=== PATIENT | male | born 1950 ===

== ENCOUNTER 2016-06-12 10:14 | Emergency (ER) | payer MEDICAID ==
[2016-06-12 10:20] VITALS: O2SAT 98
[2016-06-12] MEDS ORDERED: Sodium Chloride 0.9% 1,000 ML IV ONE (10:44)
[2016-06-12 11:09] LABS: EOS # 0.2 K/uL (0.0-0.7); HEMATOCRIT 41.2 % (35.0-51.0); LYMPH % 24.9 % (20.0-40.0); MEAN CELL VOLUME 85.2 fL (80.0-94.0); MEAN CORPUSCULAR HEMOGLOBIN 27.8 pg (27.0-31.0); MEAN CORPUSCULAR HGB CONC 32.7 g/dL (33.0-37.0); MEAN PLATELET VOLUME 8.2 fL (7.2-11.7); MONO # 0.5 K/uL (0.0-0.8); MONO % 12.3 % (0.0-10.0); NRBC % 0.1 % (0.0-2.0); RED CELL DISTRIBUTION WIDTH 14.3 % (11.5-14.5); WHITE BLOOD COUNT 4.1 K/uL (4.8-10.8)
--- NOTE | 2016-06-12 11:09 | C.PDOC ---
History Of Present Illness The patient, a 66 y/o male, presents to the ED for evaluation of hematuria which began yesterday. Patient states he has a history of chronic back pain and reports that he has been experiencing back pain recently. Patient reports he has experienced similar symptoms in the past but states they resolved on their own without any follow-ups. Patient denies fever, chills, abdominal pain, nausea , and vomiting. Time Seen by Provider: 06/12/16 10:32 Chief Complaint (Nursing): Male Genitourinary History Per: Patient History/Exam Limitations: no limitations Onset/Duration Of Symptoms: Days Current Symptoms Are (Timing): Still Present Quality Of Discomfort: "Pain" (back ) Associated Symptoms: Back Pain, Urinary Symptoms (+hematuria ). denies: Fever, Chills, Nausea, Vomiting Additional History Per: Patient Past Medical History Reviewed: Historical Data, Nursing Documentation, Vital Signs Vital Signs: Last Vital Signs Temp 98.6 F 06/12/16 13:32 Pulse 69 06/12/16 13:32 Resp 18 06/12/16 13:32 BP 127/85 06/12/16 13:32 Pulse Ox 98 06/12/16 13:32 - Medical History PMH: Back Problems Surgical History: No Surg Hx Family History: States: Unknown Family Hx - Social History Hx Alcohol Use: No Hx Substance Use: Yes - Immunization History Hx Tetanus Toxoid Vaccination: No Hx Influenza Vaccination: No Hx Pneumococcal Vaccination: No Review Of Systems Except As Marked, All Systems Reviewed And Found Negative. Constitutional: Negative for: Fever, Chills Gastrointestinal: Negative for: Nausea, Vomiting, Abdominal Pain Genitourinary: Positive for: Hematuria Musculoskeletal: Positive for: Back Pain Physical Exam - Physical Exam Appears: Non-toxic, No Acute Distress Skin: Normal Color, Warm, Dry Head: Atraumatic, Normacephalic Eye(s): bilateral: Normal Inspection, EOMI Oral Mucosa: Moist Neck: Supple Chest: Symmetrical, No Deformity, No Tenderness Cardiovascular: Rhythm Regular, No Murmur Respiratory: Normal Breath Sounds, No Rales, No Rhonchi, No Wheezing Gastrointestinal/Abdominal: Soft, No Tenderness, No Guarding, No Rebound Back: Normal Inspection Extremity: Normal ROM, Capillary Refill (less than 2 seconds) Neurological/Psych: Oriented x3, Normal Speech, Normal Cognition Gait: Steady ED Course And Treatment - Laboratory Results Result Diagrams: 06/12/16 11:00 06/12/16 11:00 Lab Interpretation: Normal O2 Sat by Pulse Oximetry: 98 (on RA) Pulse Ox Interpretation: Normal - CT Scan/US CT - Abd & Pelvis Other Rad Studies (CT/US): Read By Radiologist, Radiology Report Reviewed CT/US Interpretation: FINDINGS: LOWER THORAX: Unremarkable. LIVER: Mild hepatomegaly seen. There is 11 millimeter low-attenuation lesion seen at the peripheral right liver lobe. There are also 2 adjacent subcentimeter low- attenuation lesion at the anterior aspect of the left liver lobe. GALLBLADDER AND BILE DUCTS: The gallbladder is not clearly visualized. PANCREAS: Unremarkable. No gross lesion or ductal dilatation. SPLEEN: Unremarkable. ADRENALS: Battery 9th are not well visualized. However no definite evidence of mass lesion. KIDNEYS AND URETERS: Unremarkable. No hydronephrosis. No solid mass. VASCULATURE: Unremarkable. No aortic aneurysm. BOWEL: Moderate constipation is noted. Dense of small bowel obstruction. APPENDIX: No evidence of appendicitis. PERITONEUM: Unremarkable. No free fluid. No free air. LYMPH NODES: There is slightly high attenuation mass lesion at the left pelvis measures 4.8 x 3.7 centimeter may represent conglomerate lymphadenopathy. The assessment for retroperitoneal lymphadenopathy is limited in this study. BLADDER: Yexr-nx-[id number] urinary bladder wall thickening is seen. REPRODUCTIVE: Moderately enlarged prostate is also noted. BONES: No acute fracture. OTHER FINDINGS: Mild to moderate anasarca. IMPRESSION: Limited study without IV and oral contrast administration. No evidence of nephrolithiasis or hydronephrosis. Suspicious for soft tissue mass lesion at the left pelvis measures 4.8 x 3.7 centimeter may represent conglomerate lymphadenopathy. Moderately to markedly enlarged prostate. Further assessment by enhanced CT or other modality is suggested. Diffuse soft tissue edema. Small low-attenuation lesions in the liver not fully characterized in this noncontrast study. Moderate constipation. Mgzl-[id number]-nktlwiqp urinary bladder wall thickening. Progress Note: labs and CT A/P were ordered and reviewed. Patient received IV Fluids. On re-evaluation abdomen soft non-tender. Patient provided with copies of CT and labs. Advised to follow up at clinic Reassessment Condition: Unchanged Disposition Counseled Patient/Family Regarding: Studies Performed, Diagnosis, Need For Followup - Disposition Referrals: [facility] [Outside] [facility] [Outside] Cecy Gonzalez MD [Staff Provider] - Disposition: HOME/ ROUTINE Disposition Time: 13:10 Condition: STABLE Additional Instructions: Return to ED if any increase symptoms Instructions: Acute Hematuria (ED) Print Language: GUYANESE - POA Present On Arrival: None - Clinical Impression Clinical Impression: Hematuria - PA / CASH REGISTER BALANCER / Resident Statement MD/DO has reviewed & agrees with the documentation as recorded. - Scribe Statement The provider has reviewed the documentation as recorded by the Scribe (Ammy Soto) All medical record entries made by the Scribe were at my direction and personally dictated by me. I have reviewed the chart and agree that the record accurately reflects my personal performance of the history, physical exam, medical decision making, and the department course for this patient. I have also personally directed, reviewed, and agree with the discharge instructions and disposition.
[2016-06-12 11:16] LABS: CHLORIDE 98 mmol/L (98-107); POTASSIUM 4.3 mmol/L (3.6-5.2); SODIUM 136 mmol/L (132-148)
[2016-06-12 11:18] LABS: AST/SGOT 41 U/L (17-59); BILIRUBIN,TOTAL 0.3 mg/dL (0.2-1.3); CARBON DIOXIDE 29 mmol/L (22-30); GFR AFRICAN-AMERICAN > 60
[2016-06-12 11:19] LABS: ALB/GLOB RATIO 1.2 (1.0-2.1); ALKALINE PHOSPHATASE 63 U/L (38-126); ALT/SGPT 18 U/L (21-72); BLOOD UREA NITROGEN 11 mg/dL (9-20); CALCIUM 8.9 mg/dl (8.6-10.4); GLUCOSE,RANDOM 93 mg/dL (75-110)
[2016-06-12 11:32] LABS: URINE BILIRUBIN NEGATIVE (NEGATIVE); URINE BLOOD 2+ (NEGATIVE); URINE COLOR Amber (YELLOW); URINE GLUCOSE (UA) 1+ mg/dL (Normal); URINE KETONE 1+ mg/dL (NEGATIVE); URINE LEUKOCYTE ESTERASE NEG Leu/uL (Negative); URINE PROTEIN 2+ mg/dL (NEGATIVE); URINE UROBILINOGEN NORMAL mg/dL (0.2-1.0)
[2016-06-12 11:41] LABS: WBC URINE 1 /hpf (0-5)
[2016-06-12 11:42] LABS: RBC URINE 39495 /hpf (0-3)
--- NOTE | 2016-06-12 12:16 | CT ---
PROCEDURE: CT Abdomen and Pelvis without intravenous contrast HISTORY: Pain COMPARISON: None. TECHNIQUE: Axial and reformatted coronal and sagittal CT images of the abdomen and pelvis were obtained without IV or oral contrast administration. This CT exam was performed using one or more of the following dose reduction techniques: Automated exposure control, adjustment of the mA and/or kv according to patient size, and/or use of iterative reconstruction technique. . Contrast Dose: 0 Radiation dose: Total exam DLP = 245.12 mGy-cm. FINDINGS: LOWER THORAX: Unremarkable. LIVER: Mild hepatomegaly seen. There is 11 millimeter low-attenuation lesion seen at the peripheral right liver lobe. There are also 2 adjacent subcentimeter low-attenuation lesion at the anterior aspect of the left liver lobe. GALLBLADDER AND BILE DUCTS: The gallbladder is not clearly visualized. PANCREAS: Unremarkable. No gross lesion or ductal dilatation. SPLEEN: Unremarkable. ADRENALS: Battery 9th are not well visualized. However no definite evidence of mass lesion. KIDNEYS AND URETERS: Unremarkable. No hydronephrosis. No solid mass. VASCULATURE: Unremarkable. No aortic aneurysm. BOWEL: Moderate constipation is noted. Dense of small bowel obstruction. APPENDIX: No evidence of appendicitis. PERITONEUM: Unremarkable. No free fluid. No free air. LYMPH NODES: There is slightly high attenuation mass lesion at the left pelvis measures 4.8 x 3.7 centimeter may represent conglomerate lymphadenopathy. The assessment for retroperitoneal lymphadenopathy is limited in this study. BLADDER: Dika-zm-kfvgzshc urinary bladder wall thickening is seen. REPRODUCTIVE: Moderately enlarged prostate is also noted. BONES: No acute fracture. OTHER FINDINGS: Mild to moderate anasarca. IMPRESSION: Limited study without IV and oral contrast administration. No evidence of nephrolithiasis or hydronephrosis. Suspicious for soft tissue mass lesion at the left pelvis measures 4.8 x 3.7 centimeter may represent conglomerate lymphadenopathy. Moderately to markedly enlarged prostate. Further assessment by enhanced CT or other modality is suggested. Diffuse soft tissue edema. Small low-attenuation lesions in the liver not fully characterized in this noncontrast study. Moderate constipation. Lbbr-mt-kyobuvaf urinary bladder wall thickening.
[2016-06-12 13:33] VITALS: BP 127/85; PULSE 69; RESP 18; TEMP 98.6
== END 2016-06-12 13:33 | disposition home or self-care (01) ==
LOC: C.ER 10:14
DX: R31.9 Hematuria, unspecified (principal)
CPT/HCPCS: 74176; 80053; 81001; 85025; 87086; 96360; 99284; J7040

== ENCOUNTER 2017-08-31 12:04 | Emergency (ER) | payer MEDICAID, OTHER ==
[2017-08-31 12:59] LABS: SQUAMOUS EPITHIAL 1 /hpf (0-5); URINE AMORPHOUS SEDIMENT RARE /ul (<OCC); URINE BILIRUBIN NEGATIVE (NEGATIVE); URINE BLOOD NEGATIVE (NEGATIVE); URINE CLARITY Hazy (Clear); URINE COLOR Yellow (YELLOW); URINE GLUCOSE (UA) NORMAL (Normal); URINE LEUKOCYTE ESTERASE NEG Leu/uL (Negative); URINE PROTEIN NEGATIVE (NEGATIVE); URINE UROBILINOGEN NORMAL mg/dL (0.2-1.0)
[2017-08-31] MEDS ORDERED: Sodium Chloride 0.9% 1,000 ML IV ONE (13:00)
--- NOTE | 2017-08-31 13:04 | C.PDOC ---
History Of Present Illness 67 y/o male presents to ED with c/o generalized abdominal discomfort associated with nausea for 3 days. Patient reports taking pepto bismol and Licha seltzer with no relief. Patient admits to x2 episodes of vomiting and states he takes Naprosen daily for Arthritis. Patient denies fever, chills, diarrhea or any other complaints at this time. Time Seen by Provider: 08/31/17 12:56 Chief Complaint (Nursing): Abdominal Pain History Per: Patient History/Exam Limitations: no limitations Onset/Duration Of Symptoms: Days Current Symptoms Are (Timing): Still Present Location Of Pain/Discomfort: Diffuse Past Medical History Reviewed: Historical Data, Nursing Documentation, Vital Signs Vital Signs: Last Vital Signs Temp 97.5 F L 08/31/17 12:14 Pulse 56 L 08/31/17 12:14 Resp 16 08/31/17 12:14 BP 123/75 08/31/17 12:14 Pulse Ox 95 08/31/17 13:07 - Medical History PMH: Back Problems Surgical History: No Surg Hx Family History: States: No Known Family Hx - Social History Hx Alcohol Use: No Hx Substance Use: Yes - Immunization History Hx Tetanus Toxoid Vaccination: No Hx Influenza Vaccination: No Hx Pneumococcal Vaccination: No Review Of Systems Constitutional: Negative for: Fever, Chills Gastrointestinal: Positive for: Nausea, Vomiting, Abdominal Pain. Negative for : Diarrhea Genitourinary: Negative for: Dysuria, Hematuria Musculoskeletal: Negative for: Back Pain Skin: Negative for: Rash Physical Exam - Physical Exam Appears: Non-toxic, No Acute Distress Skin: Warm, Dry, No Rash Head: Atraumatic, Normacephalic Eye(s): bilateral: Normal Inspection Oral Mucosa: Moist Neck: Normal ROM, Supple Cardiovascular: Rhythm Regular Respiratory: Normal Breath Sounds, No Rales, No Rhonchi, No Wheezing Gastrointestinal/Abdominal: Bowel Sounds, Soft, No Tenderness, No Guarding, No Rebound Back: No CVA Tenderness, No Paraspinal Tenderness Neurological/Psych: Oriented x3, Normal Speech ED Course And Treatment - Laboratory Results Result Diagrams: 08/31/17 13:22 08/31/17 13:22 Lab Interpretation: No Acute Changes O2 Sat by Pulse Oximetry: 95 (RA) Pulse Ox Interpretation: Normal Reevaluation Time: 14:32 Reassessment Condition: Improved (Patient feels better after IV Protonix. Able to tolerate fluids without difficulty.) Disposition Counseled Patient/Family Regarding: Studies Performed, Diagnosis, Need For Followup, Rx Given - Disposition Referrals: [facility] [Outside] Disposition: HOME/ ROUTINE Disposition Time: 14:33 Condition: IMPROVED Additional Instructions: Keep your diet bland. Encourage fluids. Prescriptions: Ondansetron ODT [Zofran ODT] 4 mg PO QID PRN #10 odt PRN Reason: Nausea/Vomiting Pantoprazole Sodium [Protonix] 40 mg PO DAILY #14 tablet.dr Instructions: Acute Abdomen (Belly Pain), Adult (DC) Forms: [employer] (Faroese) - Clinical Impression Clinical Impression: Abdominal discomfort, Nausea - Scribe Statement The provider has reviewed the documentation as recorded by the Yeseniaibjenna Olivo All medical record entries made by the Yeseniaibjenna were at my direction and personally dictated by me. I have reviewed the chart and agree that the record accurately reflects my personal performance of the history, physical exam, medical decision making, and the department course for this patient. I have also personally directed, reviewed, and agree with the discharge instructions and disposition.
[2017-08-31] MEDS ORDERED: Sodium Chloride 0.9% 1,000 ML ONE (13:18)
[2017-08-31 13:29] LABS: BASO % 0.7 % (0.0-2.0); EOS # 0.1 K/uL (0.0-0.7); EOS % 1.3 % (0.0-4.0); HEMOGLOBIN 14.2 g/dL (12.0-18.0); LYMPH # 0.7 K/uL (1.0-4.3); LYMPH % 11.5 % (20.0-40.0); MEAN CELL VOLUME 85.6 fL (80.0-94.0); MEAN CORPUSCULAR HEMOGLOBIN 28.3 pg (27.0-31.0); MEAN PLATELET VOLUME 8.8 fL (7.2-11.7); MONO # 0.3 K/uL (0.0-0.8); MONO % 5.4 % (0.0-10.0); NEUT # 4.7 K/uL (1.8-7.0); NEUT % 81.1 % (50.0-75.0); RBC 5.02 Mil/uL (4.40-5.90); RED CELL DISTRIBUTION WIDTH 13.8 % (11.5-14.5); WHITE BLOOD COUNT 5.8 K/uL (4.8-10.8)
[2017-08-31 13:41] LABS: BARBITURATES, UR NEGATIVE (NEGATIVE); BENZODIAZEPINES, UR NEGATIVE (NEGATIVE)
[2017-08-31 13:42] LABS: OPIATES, UR NEGATIVE (NEGATIVE); PHENCYCLIDINE, UR NEGATIVE (NEGATIVE)
[2017-08-31 13:47] LABS: ALB/GLOB RATIO 1.3 (1.0-2.1); ALBUMIN 4.1 g/dL (3.5-5.0); ALT/SGPT 26 U/L (21-72); AST/SGOT 44 U/L (17-59); BLOOD UREA NITROGEN 14 mg/dL (9-20); CALCIUM 9.3 mg/dl (8.6-10.4); GFR AFRICAN-AMERICAN > 60; GFR NON-AFRICAN AMERICAN > 60; LIPASE 65 U/L (23-300)
[2017-08-31 14:52] VITALS: BP 109/57; PULSE 60; RESP 18; TEMP 97.9; O2SAT 99
== END 2017-08-31 14:53 | disposition home or self-care (01) ==
LOC: C.ER 12:04
DX: R10.84 Generalized abdominal pain (principal); R11.0 Nausea
CPT/HCPCS: 80053; 80324; 80345; 80346; 80349; 80353; 80358; 80361; 81001; 83690; 83992; 85025; 96361; 96374; 99284; C9113; J7030